=== PATIENT | female | born 1990 ===

== ENCOUNTER 2021-08-24 07:44 | Inpatient (IN) ==
[2021-08-24] MEDS ORDERED: OXYTOCIN 30 UNITS/500 ML BAG IV PRN (10:05)
[2021-08-24] MEDS ORDERED: DINOPROSTONE 10 MG INSERT PV ONE (10:20)
--- NOTE | 2021-08-24 10:31 | History & Physical Report ---
Date of Service August 24, 2021 Assessment & Plan Admission and Anticipated Discharge Date Admission Date: August 24, 2021 History of Present Illness Primary Care Provider: NO PCP 31 F P0000 at 41 weeks admitted for post dates induction. Allergies Allergy/AdvReac Type Severity Reaction Status Date / Time amoxicillin Allergy Unknown Verified 08/24/21 08:28 grape Allergy Swelling Verified 08/24/21 08:28 of Lip/Tongue/Throat Penicillins Allergy Unknown Verified 08/24/21 08:28 sulfamethoxazole Allergy Hives Verified 08/24/21 08:29 [From Bactrim] trimethoprim [From Bactrim] Allergy Hives Verified 08/24/21 08:29 Home Medications Medication Instructions Recorded Confirmed Type aspirin 81 mg tablet,delayed 81 mg PO DAILY 08/24/21 08/24/21 History release (Aspirin Low Dose) [id number] 1 mg 1 tab PO DAILY 08/24/21 08/24/21 History tablet Patient History Medical History Hyperlipemia no meds Seizure as a child; no meds; no seizure in last 12 years Surgical History H/O wisdom tooth extraction as a teenager Family History Father Hypertension Social History Smoking Status: Never smoker Hx Alcohol Use: No Hx Substance Use: No Preferred Language: Bulgarian Visual Impairment: No Limitations Beliefs That Will Affect Care: None marital status: marital status details: Robert Powers Current Living Situation: Spouse Current Living Situation Comment: lives with current occupational status: employed 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 Other Information That Helps Us Care for You: No Feels Safe at Home: Yes Safety Concerns: Feels Safe At This Time Assistive Devices: None OB History primip Class III obesity 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 Review of Systems All systems reviewed & are unremarkable except as noted in HPI & below Physical Exam Constitutional: WD/WN, vitals as above + obese and comfortable Eyes: PERRL, conjunctivae normal, anicteric sclerae Respiratory: normal respiratory effort, lungs clear to auscultation Cardiovascular: RRR, no murmur, no edema Neurologic: patellar DTR's 2+ bilat, sensation intact Psychiatric: A+Ox3, euthymic affect Genitourinary: normal external appearance OB Exam Abdomen: + vertex and + estimated weight (9 lbs.) Manual OB Exam: + cervical dilation (closed), + cervical effacement 50% and + station high OB Exam Monitor Tracing: + external FHT monitor used, + external uterine monitor used, + category I and + normal FHT variability Cervix posterior and firm in consistency will plan for Cervidil for cervical ripening discussed with patient and spouse Results & Data ([facility]) Vital Signs (Past 12 Hours) Vital Signs Temp Pulse Resp BP 08/24/21 08:45 111 H 126/73 08/24/21 08:30 105 H 135/74 08/24/21 08:16 117 H 136/78 08/24/21 08:00 36.7 C 122 H 18 151/81 H Code Status & VTE Plan VTE Prophylaxis Plan VTE Prophylaxis will be ordered: No
[2021-08-24 10:33] LABS: Hematocrit (blood only) 36.8 % (37-47); Hemoglobin 12.3 g/dL (12.0-16.0); Mean Corpuscular Hemoglobin 28.8 pg (25-34); Mean Corpuscular Hgb Conc 33.4 g/dL (32-36); Mean Corpuscular Volume 86.2 fL (80-100); Mean Platelet Volume 11.6 fL (7.4-10.4); Platelet Count 298 K/uL (130-400); RDW Coefficient of Variation 13.1 % (11.5-14.5); RDW Standard Deviation 40.9 fL (36.4-46.3); Red Blood Count 4.27 M/uL (4.2-5.4); White Blood Count 13.59 K/uL (4.8-10.8)
--- NOTE | 2021-08-24 10:39 | History & Physical Report ---
Date of Service August 24, 2021 Assessment & Plan (1) Post-dates : Plan: Cervidil for cervical ripening discussed with patient and spouse Admission and Anticipated Discharge Date Admission Date: August 24, 2021 History of Present Illness Primary Care Provider: NO PCP Allergies Allergy/AdvReac Type Severity Reaction Status Date / Time amoxicillin Allergy Unknown Verified 08/24/21 08:28 grape Allergy Swelling Verified 08/24/21 08:28 of Lip/Tongue/Throat Penicillins Allergy Unknown Verified 08/24/21 08:28 sulfamethoxazole Allergy Hives Verified 08/24/21 08:29 [From Bactrim] trimethoprim [From Bactrim] Allergy Hives Verified 08/24/21 08:29 Home Medications Medication Instructions Recorded Confirmed Type aspirin 81 mg tablet,delayed 81 mg PO DAILY 08/24/21 08/24/21 History release (Aspirin Low Dose) hnwdsdso-szz-Ko-FA 1 mg 1 tab PO DAILY 08/24/21 08/24/21 History tablet Patient History Medical History Hyperlipemia no meds Seizure as a child; no meds; no seizure in last 12 years Surgical History H/O wisdom tooth extraction as a teenager Family History Father Hypertension Social History Smoking Status: Never smoker Hx Alcohol Use: No Hx Substance Use: No Preferred Language: Pashto Visual Impairment: No Limitations Beliefs That Will Affect Care: None marital status: marital status details: Robert Powers Current Living Situation: Spouse Current Living Situation Comment: lives with current occupational status: employed 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 Other Information That Helps Us Care for You: No Feels Safe at Home: Yes Safety Concerns: Feels Safe At This Time Assistive Devices: None OB History primip Class 3 obesity 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 Review of Systems All systems reviewed & are unremarkable except as noted in HPI & below Physical Exam Constitutional: WD/WN, vitals as above + obese and comfortable Eyes: PERRL, conjunctivae normal, anicteric sclerae Cardiovascular: RRR, no murmur, no edema Psychiatric: A+Ox3, euthymic affect Genitourinary: no vaginal lesions, no adnexal mass OB Exam Abdomen: + vertex Manual OB Exam: + cervical dilation, + cervical effacement 50% and + station (closed and thick) high Results & Data ([place]) Vital Signs (Past 12 Hours) Vital Signs Temp Pulse Resp BP 08/24/21 08:45 111 H 126/73 08/24/21 08:30 105 H 135/74 08/24/21 08:16 117 H 136/78 08/24/21 08:00 36.7 C 122 H 18 151/81 H Code Status & VTE Plan VTE Prophylaxis Plan VTE Prophylaxis will be ordered: No
--- NOTE | 2021-08-24 10:48 | Labor Progress Brief Note ---
Date of Service August 24, 2021 Assessment & Plan Admission and Anticipated Discharge Date Admission Date: August 24, 2021 Physical Exam Genitourinary: Cervidil 10 mg placed GBS positive will start antibiotics when in active labor Results & Data ([facility]) Vital Signs (Past 12 Hours) Vital Signs Temp Pulse Resp BP 08/24/21 08:45 111 H 126/73 08/24/21 08:30 105 H 135/74 08/24/21 08:16 117 H 136/78 08/24/21 08:00 36.7 C 122 H 18 151/81 H
[2021-08-24] MEDS ORDERED: PENICILLIN G POTASSIUM 6 MU in DEXTROSE 5% 250 ML IV STA (10:59)
[2021-08-24] MEDS ORDERED: PENICILLIN G POTASSIUM 3 MU in DEXTROSE 5% 100 ML IV PRN (13:48)
[2021-08-24] MEDS: ACETAMINOPHEN 325 MG TAB PO PRN (15:40)
[2021-08-25] MEDS: ACETAMINOPHEN 325 MG TAB PO PRN (00:18)
[2021-08-25] MEDS: miSOPROStoL 50 MCG TAB PO PRN ×2 (00:50→05:37)
[2021-08-25] MEDS: LACTATED RINGER'S 1,000 ML IV PRN ×4 (01:30→21:22)
[2021-08-25] MEDS ORDERED: COUGH DROP (SUGAR FREE) LOZ 24 LOZ/1 BOX BUCCAL ONE (02:04)
[2021-08-25] MEDS: BUTORPHANOL TARTRATE 1 MG/ML VIAL IV PRN ×2 (05:57→13:05)
[2021-08-25] MEDS ORDERED: OXYTOCIN 30 UNITS/500 ML BAG IV PRN (11:40)
--- NOTE | 2021-08-25 11:40 | Labor Progress Brief Note ---
Date of Service August 25, 2021 Assessment & Plan (1) Post-dates : Plan: Met pt and spouse Pt doing well Induction for post dates and BMI received Cytotec X2 and Cervidil VE; ft/thick/post FHR; CAT1 EFW; 9lbs Smith bulb placed with 60cc saline Pt tolerated procedure well Low dose Pitocin started Admission and Anticipated Discharge Date Admission Date: August 24, 2021 Results & Data ([facility]) Vital Signs (Past 12 Hours) Vital Signs Temp Pulse Resp BP Pulse Ox 08/25/21 10:09 88 20 122/61 08/25/21 07:20 36.5 C 82 20 137/79 08/25/21 07:19 103 H 71 L 08/25/21 07:10 79 94 08/25/21 07:09 79 96 08/25/21 07:04 88 93 08/25/21 06:59 87 96 08/25/21 06:54 84 95 08/25/21 06:50 88 94 08/25/21 06:49 86 95 08/25/21 06:44 86 95 08/25/21 06:42 94 H 93 08/25/21 06:39 92 H 96 08/25/21 06:34 87 96 08/25/21 06:32 91 H 94 08/25/21 06:29 91 H 96 08/25/21 06:23 81 98 08/25/21 06:18 89 95 08/25/21 06:15 89 94 08/25/21 06:13 82 96 08/25/21 06:08 93 H 96 08/25/21 06:03 86 96 08/25/21 05:58 83 96 08/25/21 05:53 90 96 08/25/21 05:48 83 97 08/25/21 05:43 92 H 96 08/25/21 05:37 86 106/61 08/25/21 00:24 36.8 C 88 16 110/68
[2021-08-25] MEDS ORDERED: ceFAZolin 2000MG 2,000 MG/15 ML SYR IV STA (20:26)
--- NOTE | 2021-08-25 20:29 | Labor Progress Brief Note ---
Date of Service August 25, 2021 Assessment & Plan (1) Post-dates : Plan: pt doing well FHR; CAT1 VE 3-4/50/-2 Ctx; Minimal Pit' 10Mu AROM with amnio hook- clear fluid Admission and Anticipated Discharge Date Admission Date: August 24, 2021 Results & Data ([facility]) Vital Signs (Past 12 Hours) Vital Signs Temp Pulse Resp BP 08/25/21 20:21 96 H 139/86 08/25/21 19:15 88 130/71 08/25/21 19:05 36.8 C 08/25/21 18:18 96 H 20 130/86 08/25/21 17:14 74 118/73 08/25/21 16:20 36.7 C 82 22 113/74 08/25/21 15:16 74 138/68 08/25/21 14:15 77 16 120/67 08/25/21 13:12 67 124/58 L 08/25/21 11:55 36.8 C 88 20 124/68 08/25/21 10:09 88 20 122/61
[2021-08-25] MEDS ORDERED: fentaNYL citrate 100 MCG/2 ML VIAL ONE (21:57)
[2021-08-25] MEDS ORDERED: ePHEDrine sulfate 50 MG/ML AMP ONE (21:57)
[2021-08-25] MEDS ORDERED: BUPIVACAINE 0.25% 30 ML VIAL ONE (21:57)
[2021-08-25] MEDS ORDERED: SODIUM CHLORIDE 0.9% INJ 10 ML VIAL ONE (21:57)
[2021-08-25] MEDS ORDERED: fentaNYL 2MCG/ML ROPIVACAINE 1.25MG/ML 100 ML BAG EPI ONE (21:58)
[2021-08-25] MEDS ORDERED: diphenhydrAMINE 50 MG/ML VIAL IV PRN (22:19)
[2021-08-25] MEDS ORDERED: ePHEDrine sulfate 50 MG/ML AMP IV PRN (22:19)
[2021-08-25] MEDS ORDERED: NALBUPHINE HCL INJ 10 MG/ML AMP IV PRN (22:19)
[2021-08-25] MEDS ORDERED: NALOXONE HCL 0.4 MG/1 ML VIAL/CARP IV PRN (22:19)
[2021-08-25] MEDS ORDERED: ONDANSETRON INJ 2 MG/ML 2 ML VIAL IV PRN (22:19)
[2021-08-25] MEDS ORDERED: NALOXONE HCL 1 MG in SODIUM CHLORIDE 0.9% 1000ML 1,000 ML IV PRN (22:19)
[2021-08-25] MEDS ORDERED: fentaNYL 2MCG/ML ROPIVACAINE 1.25MG/ML 100 ML BAG EPI PRN (22:19)
--- NOTE | 2021-08-25 22:27 | Anesthesiology Consultation ---
Date of Service August 25, 2021 Assessment & Plan Chart Review Chart Review: Patient NOT seen in Pre Admission Testing and Acceptable Risk for Labor Epidural Consults Requested none ASA ASA3 Proposed Anesthesia Anesthesia Type: Labor Epidural and CSE Risk / Benefits Reviewed With: PT / POA / Parent / Guardian, Accepts Plan and Informed Consent Obtained History Height/Weight Height: 5 ft 7 in Weight: 132.903 kg Allergies Allergy/AdvReac Type Severity Reaction Status Date / Time amoxicillin Allergy Unknown Verified 08/24/21 08:28 grape Allergy Swelling Verified 08/24/21 08:28 of Lip/Tongue/Throat Penicillins Allergy Unknown Verified 08/24/21 08:28 sulfamethoxazole Allergy Hives Verified 08/24/21 08:29 [From Bactrim] trimethoprim [From Bactrim] Allergy Hives Verified 08/24/21 08:29 Medications Home Medications Medication Instructions Recorded Confirmed Last Taken aspirin 81 mg tablet,delayed 81 mg PO DAILY 08/24/21 08/24/21 08/23/21 08:00 release (Aspirin Low Dose) ixzjcwbx-fqt-Be-FA 1 mg 1 tab PO DAILY 08/24/21 08/24/21 08/23/21 08:00 tablet Active Medications Generic Name Dose Route Start Last Admin Trade Name Freq PRN Reason Stop Dose Admin Acetaminophen 650 mg 08/24/21 15:23 08/25/21 00:18 Acetaminophen 325 Mg Tab PO 09/23/21 15:22 650 mg Q4H PRN Administration Pain Butorphanol Tartrate 1 mg 08/25/21 00:56 08/25/21 13:05 Butorphanol Tartrate 1 Mg/Ml Vial IV 09/24/21 00:55 1 mg Q2R PRN Administration Pain Lactated Ringer's 1,000 mls @ 125 mls/hr 08/24/21 10:05 08/25/21 21:22 Lr IV 08/26/21 10:04 125 mls/hr .Q8H PRN Administration L&D Protocol Protocol Oxytocin 30 units in 500 mls @ 12 mls/hr 08/25/21 11:40 08/25/21 21:51 Pitocin IV 08/27/21 11:39 0.72 units/hr .Q24H PRN 12 mls/hr Labor Induction/Augmentation Titration Protocol 0.72 UNITS/HR Misoprostol 50 mcg 08/24/21 23:47 10/05/21 05:37 Misoprostol 50 Mcg Tab PO 09/23/21 23:46 50 mcg Q4H PRN Administration Labor induction. NPO Date Last Intake of Fluids: 08/25/21 Time Last Intake of Fluids: 20:00 Date Last Intake of Solids: 08/25/21 Time Last Intake of Solids: 08:30 Past Medical History Medical History (Updated 08/25/21 @ 22:21 by Loco Shaw MD) Hyperlipemia no meds Obesity Seizure as a child; no meds; no seizure in last 12 years Exercise / Class Metabolic Activity II 4-5 Yardwork/Stairs/Walk up hill Past Family History Family History Father Hypertension Past Surgical History Surgical History H/O wisdom tooth extraction as a teenager Past Anesthesia History No Hx of Anesthesia Complications and No Family Hx of Anesthesia Complications History of PONV No Hx of PONV and No Hx of Motion Sickness Social History Smoking Status: Never smoker Hx Alcohol Use: No Hx Substance Use: No substance use type: does not use Review of Systems no chest pain or sob Physical Exam Vital Signs Last Vital Signs Temp 36.5 C 08/25/21 21:22 Pulse 83 08/25/21 22:15 Resp 20 08/25/21 18:18 BP 118/72 08/25/21 22:15 Pulse Ox 71 L 08/25/21 07:19 SpO2 100 Constitutional + morbidly obese ENMT Mouth: no TMJ abnormality Thyromental Distance: > or= 3.5 Finger Breadths Mallampati Class: II Neck normal visual inspection Respiratory normal respiratory effort Auscultation: lungs clear to auscultation bilaterally Cardiovascular Rate/Rhythm: regular rate and regular rhythm Musculoskeletal Spine: normal cervical ROM Neurologic moves all extremities Psychiatric Orientation: alert and oriented x 3 Testing Laboratory Results 08/24/21 10:17 Blood Type B Positive 08/24/21 10:17 Antibody Screen NEGATIVE 08/24/21 10:17
--- NOTE | 2021-08-26 02:02 | Labor Progress Brief Note ---
Date of Service August 26, 2021 Assessment & Plan (1) Post-dates : Plan: Recurrent late VE; 4cm Unchanged A/p FTP Recurrent late decel discussed c/sec with pt Pt has agreed discussed risk of surgery consent is signed will proceed to c/sec (2) Obesity: Admission and Anticipated Discharge Date Admission Date: August 24, 2021 Results & Data ([facility]) Vital Signs (Past 12 Hours) Vital Signs Temp Pulse Resp BP Pulse Ox 08/26/21 01:56 97 H 100 08/26/21 01:51 84 100 08/26/21 01:46 105 H 99 08/26/21 01:41 93 H 98 08/26/21 01:36 79 99 08/26/21 01:35 86 122/67 08/26/21 01:31 108 H 100 08/26/21 01:26 130 H 96 08/26/21 01:21 83 96 08/26/21 01:20 89 119/62 08/26/21 01:16 72 96 08/26/21 01:11 88 96 08/26/21 01:06 84 97 08/26/21 01:05 99 H 124/70 08/26/21 01:01 68 96 08/26/21 01:00 36.7 C 18 08/26/21 00:56 70 96 08/26/21 00:51 84 96 08/26/21 00:50 81 123/57 L 08/26/21 00:46 96 H 98 08/26/21 00:41 80 97 08/26/21 00:37 82 130/60 08/26/21 00:36 86 97 08/26/21 00:31 113 H 98 08/26/21 00:26 70 96 08/26/21 00:21 81 97 08/26/21 00:20 82 125/60 08/26/21 00:16 76 97 08/26/21 00:11 77 96 08/26/21 00:06 75 97 08/26/21 00:05 111 H 130/71 08/26/21 00:01 70 94 08/25/21 23:56 73 96 08/25/21 23:51 69 95 08/25/21 23:50 66 113/56 L 08/25/21 23:46 66 95 08/25/21 23:41 73 98 08/25/21 23:37 68 113/61 08/25/21 23:36 70 97 08/25/21 23:31 90 97 08/25/21 23:26 68 96 08/25/21 23:22 76 123/60 08/25/21 23:21 77 98 08/25/21 23:16 81 98 08/25/21 23:11 77 96 08/25/21 23:06 81 98 08/25/21 23:04 78 125/58 L 08/25/21 23:01 91 H 116/57 L 98 08/25/21 23:00 36.5 C 18 08/25/21 22:58 93 H 124/60 08/25/21 22:56 83 98 08/25/21 22:52 88 113/80 08/25/21 22:51 92 H 99 08/25/21 22:46 93 H 100 08/25/21 22:43 98 H 140/87 08/25/21 22:41 94 H 100 08/25/21 22:40 100 H 139/83 08/25/21 22:36 98 H 100 08/25/21 22:31 98 H 127/72 100 08/25/21 22:26 95 H 100 08/25/21 22:15 83 118/72 08/25/21 21:27 86 136/83 08/25/21 21:22 36.5 C 08/25/21 20:21 96 H 139/86 08/25/21 19:15 88 130/71 08/25/21 19:05 36.8 C 08/25/21 18:18 96 H 20 130/86 08/25/21 17:14 74 118/73 08/25/21 16:20 36.7 C 82 22 113/74 08/25/21 15:16 74 138/68 08/25/21 14:15 77 16 120/67
[2021-08-26] MEDS ORDERED: CITRIC ACID/SODIUM CITRATE 15 ML UDC PO ONE (02:30)
[2021-08-26] MEDS ORDERED: LACTATED RINGER'S 500 ML IV PRN (02:32)
[2021-08-26] MEDS ORDERED: NALOXONE HCL 0.08 MG in SYRINGE 1.8 ML IV PRN (02:32)
[2021-08-26] MEDS ORDERED: NALBUPHINE HCL INJ 10 MG/ML AMP IV PRN (02:32)
[2021-08-26] MEDS ORDERED: HYDROmorphone INJ 0.5 MG/0.5 ML SYR IV PRN (02:32)
[2021-08-26] MEDS ORDERED: NALOXONE HCL 1 MG in SODIUM CHLORIDE 0.9% 1000ML 1,000 ML IV PRN (02:32)
[2021-08-26] MEDS ORDERED: ePHEDrine sulfate 50 MG/ML AMP IV PRN (02:32)
[2021-08-26] MEDS ORDERED: diphenhydrAMINE 50 MG/ML VIAL IV PRN ×2 (02:32→20:32)
[2021-08-26] MEDS ORDERED: KETOROLAC 30 MG/ML VIAL IV PRN (02:32)
[2021-08-26] MEDS ORDERED: MoRPHine SULFATE PF 1 MG/ML 10 ML AMP/VIAL EPI ONE (02:32)
[2021-08-26] MEDS ORDERED: NALOXONE HCL 0.4 MG/1 ML VIAL/CARP IV PRN (02:32)
[2021-08-26] MEDS ORDERED: NO NARCOTICS OR SEDATIVES SCH (02:45)
[2021-08-26] MEDS ORDERED: DC INTRASPINAL MORPHINE SCH (02:45)
[2021-08-26] MEDS ORDERED: SODIUM CHLORIDE 0.9% 1000ML 1,000 ML IV SCH (02:45)
[2021-08-26] MEDS ORDERED: ceFAZolin 1000MG 1,000 MG/7.5 ML SYR IV PRN (03:26)
[2021-08-26] MEDS ORDERED: MAGNESIUM HYDROXIDE SUSP 30 ML UDC PO PRN (04:09)
[2021-08-26] MEDS ORDERED: SENNA 8.6 MG TAB PO PRN (04:09)
[2021-08-26] MEDS ORDERED: SUPERCREAM 0.870% 15 GM JAR EXT PRN (04:09)
[2021-08-26] MEDS ORDERED: BENZOCAINE 20% AER SPR 82.5 GM CAN EXT PRN (04:09)
[2021-08-26] MEDS ORDERED: HYDROCORTISONE ACETATE 25 MG SUPP PR PRN (04:09)
[2021-08-26] MEDS ORDERED: DIPHTHERIA/TETANUS/PERTUSSIS 0.5 ML SYR/VIAL IM ONE (04:09)
--- NOTE | 2021-08-26 04:11 | Anesthesiology Progress Note ---
Date of Service August 26, 2021 Anesthesia Post Procedure Vital Signs Vital Signs: Temp Pulse Resp BP Pulse Ox 08/26/21 04:07 79 96/47 L 08/26/21 04:06 78 100 08/26/21 02:36 117 H 100 08/26/21 02:31 128 H 100 08/26/21 02:26 108 H 100 08/26/21 02:21 112 H 100 08/26/21 02:20 106 H 120/62 08/26/21 02:16 107 H 100 08/26/21 02:11 98 H 100 08/26/21 02:06 112 H 100 08/26/21 02:01 112 H 100 08/26/21 01:56 97 H 100 08/26/21 01:51 84 100 08/26/21 01:46 105 H 99 08/26/21 01:41 93 H 98 08/26/21 01:36 79 99 08/26/21 01:35 86 122/67 08/26/21 01:31 108 H 100 08/26/21 01:30 18 08/26/21 01:26 130 H 96 08/26/21 01:21 83 96 08/26/21 01:20 89 119/62 08/26/21 01:16 72 96 08/26/21 01:11 88 96 08/26/21 01:06 84 97 08/26/21 01:05 99 H 124/70 08/26/21 01:01 68 96 08/26/21 01:00 36.7 C 18 08/26/21 00:56 70 96 08/26/21 00:51 84 96 08/26/21 00:50 81 123/57 L 08/26/21 00:46 96 H 98 08/26/21 00:41 80 97 08/26/21 00:37 82 130/60 08/26/21 00:36 86 97 08/26/21 00:31 113 H 98 08/26/21 00:30 18 08/26/21 00:26 70 96 08/26/21 00:21 81 97 08/26/21 00:20 82 125/60 08/26/21 00:16 76 97 08/26/21 00:11 77 96 08/26/21 00:06 75 97 08/26/21 00:05 111 H 130/71 08/26/21 00:01 70 94 08/26/21 00:00 18 08/25/21 23:56 73 96 08/25/21 23:51 69 95 08/25/21 23:50 66 113/56 L 08/25/21 23:46 66 95 08/25/21 23:41 73 98 08/25/21 23:37 68 113/61 08/25/21 23:36 70 97 08/25/21 23:31 90 97 08/25/21 23:30 18 08/25/21 23:26 68 96 08/25/21 23:22 76 123/60 08/25/21 23:21 77 98 08/25/21 23:16 81 98 08/25/21 23:11 77 96 08/25/21 23:06 81 98 08/25/21 23:04 78 125/58 L 08/25/21 23:01 91 H 116/57 L 98 08/25/21 23:00 36.5 C 18 08/25/21 22:58 93 H 124/60 08/25/21 22:56 83 98 08/25/21 22:52 88 113/80 08/25/21 22:51 92 H 99 08/25/21 22:46 93 H 100 08/25/21 22:43 98 H 140/87 08/25/21 22:41 94 H 100 08/25/21 22:40 100 H 139/83 08/25/21 22:36 98 H 100 08/25/21 22:31 98 H 127/72 100 08/25/21 22:26 95 H 100 08/25/21 22:15 83 118/72 08/25/21 21:27 86 136/83 08/25/21 21:22 36.5 C 08/25/21 20:21 96 H 139/86 08/25/21 19:15 88 130/71 08/25/21 19:05 36.8 C 08/25/21 18:18 96 H 20 130/86 08/25/21 17:14 74 118/73 08/25/21 16:20 36.7 C 82 22 113/74 08/25/21 15:16 74 138/68 08/25/21 14:15 77 16 120/67 08/25/21 13:12 67 124/58 L 08/25/21 11:55 36.8 C 88 20 124/68 08/25/21 10:09 88 20 122/61 08/25/21 07:20 36.5 C 82 20 137/79 08/25/21 07:19 103 H 71 L 08/25/21 07:10 79 94 08/25/21 07:09 79 96 08/25/21 07:04 88 93 08/25/21 06:59 87 96 08/25/21 06:54 84 95 08/25/21 06:50 88 94 08/25/21 06:49 86 95 08/25/21 06:44 86 95 08/25/21 06:42 94 H 93 08/25/21 06:39 92 H 96 08/25/21 06:34 87 96 08/25/21 06:32 91 H 94 08/25/21 06:29 91 H 96 08/25/21 06:23 81 98 08/25/21 06:18 89 95 08/25/21 06:15 89 94 08/25/21 06:13 82 96 08/25/21 06:08 93 H 96 08/25/21 06:03 86 96 08/25/21 05:58 83 96 08/25/21 05:53 90 96 08/25/21 05:48 83 97 08/25/21 05:43 92 H 96 08/25/21 05:37 86 106/61 Transfer of Care Handoff Completed per policy Notes Mental Status: alert / awake / arousable Patient Amnestic to Procedure: Yes Nausea / Vomiting: adequately controlled Pain: adequately controlled Airway Patency, RR, SpO2: stable & adequate BP & HR: stable & adequate Hydration State: stable & adequate Neuraxial Anesthesia: was administered and sensory block is resolving Anesthetic Complications: no major complications apparent and Pt Satisfied with anesthetic care
[2021-08-26] MEDS: OXYTOCIN 20 UNITS in LACTATED RINGER'S 1,000 ML IV SCH ×2 (05:44→13:51)
[2021-08-26 05:50] LABS: Base Excess Cord Arterial Bld -7.5 mEq/L (-9-1.8); CO2 Cord Arterial Blood 65 mmHg (39.1-73.5); HCO3 Cord Arterial Blood 23 mmol/L (19.7-28.5); pH Cord Arterial Blood 7.16 (7.1-7.38)
[2021-08-26 05:51] LABS: Oxygen Sat Cord Arterial Blood < 60.0 % (<60)
[2021-08-26 05:52] LABS: Base Excess Cord Venous Blood -5.3 mEq/L (-7.7-1.9); Cord Venous Blood HCO3 24 mmol/L (18.4-26.8); Cord Venous Blood PCO2 64 mmHg (30.4-57.2); Cord Venous Blood PO2 14 mmHg (14.1-43.3); O2 Saturation Cord Venous Bld < 60.0 % (<68)
--- NOTE | 2021-08-26 08:02 | Operative Report (OR) ---
INDICATION FOR SURGERY: This is a 31-year-old G1, P0 who presented to labor and delivery on 08/24/2021 for induction of labor for prolonged gestation and elevated BMI. The patient received Cervidil and Cytotec. Amniotomy was performed. The patient eventually got to 4 cm with Pitocin augmentation and was experiencing recurrent late decelerations with failure to progress. Decision was therefore made to perform section. PREOPERATIVE DIAGNOSES: 1. Failed induction of labor. 2. Failure to progress. 3. Category III strip. POSTOPERATIVE DIAGNOSES: 1. Failed induction of labor. 2. Failure to progress. 3. Category III strip. SURGEON: Harpal Cedeño MD RUG SCRATCHER: Dr. Davidson. ESTIMATED BLOOD LOSS: 600 mL. INTRAVENOUS FLUIDS: 2 liters. URINE OUTPUT: 180 mL of clear urine at the end of procedure. FINDINGS: in cephalic presentation with the umbilical cord wrapped twice around the body. Uterus, tubes, ovaries, and rest of abdominal exam is unremarkable. PATHOLOGY: Placenta and cord gas. COMPLICATIONS: None. DRAINS: Smith catheter. ANESTHESIA: Epidural. Attestation for assistance; Assistance was necessary to help with retraction of instruments and equipment to facilitate safe surgery DESCRIPTION OF PROCEDURE: The patient was taken to the operating room where she was prepped and draped in normal sterile fashion in dorsal lithotomy position. A Pfannenstiel incision was made and carried down to the fascia with the scalpel. Fascia was incised in the midline and extended laterally on both sides. The fascia was sharply dissected off the rectus abdominis muscle. Peritoneum was identified and entered sharply. Once inside the abdomen, an Juan retractor was placed for retraction. Vesicouterine peritoneum was sharply dissected off the lower segment of the uterus. A transverse incision was made in the uterus and extended laterally on both sides. 's head was delivered. was known to have body cord x2. Cord was clamped and cut and infant handed over to the pediatric team. Details of the 's weight and Apgars are in the pediatric record. Placenta was manually removed. Uterus was exteriorized and cleared of all clots and debris. Uterus was closed in two layers with Vicryl. There was good hemostasis post repair. Copious amount of irrigation was used to irrigate the abdomen. Uterus was returned to the abdominal cavity. Peritoneum was reapproximated with plain suture. Fascia was closed in a running fashion with Vicryl. There was good hemostasis. Subcutaneous space was irrigated and a plain suture was used to approximate the subcutaneous space. Skin was closed with denver. All instruments were removed from the abdomen and accounted for x2 including sponges, needles, and retractors. The patient was stable to recovery. Job ID: [id number] [facility]
[2021-08-26] MEDS: DOCUSATE SODIUM 100 MG CAP PO SCH ×2 (09:37→22:54)
[2021-08-26] MEDS: SIMETHICONE 80 MG CHEW PO SCH ×4 (09:38→22:54)
[2021-08-26] MEDS: PRENATAL VITAMIN 1 TAB PO SCH (12:42)
[2021-08-26] MEDS: FERROUS SULFATE 325 MG TAB PO SCH (12:42)
[2021-08-26] MEDS ORDERED: PROMETHAZINE HCL 25 MG in SODIUM CHLORIDE 0.9% 50 ML IV PRN (20:32)
[2021-08-26] MEDS ORDERED: diphenhydrAMINE Capsule 25 MG CAP PO PRN (20:32)
[2021-08-26] MEDS ORDERED: ONDANSETRON INJ 2 MG/ML 2 ML VIAL IV PRN (20:32)
[2021-08-26] MEDS: oxyCODONE/ACETAMINOPHEN 5mg/325mg TAB PO PRN (22:54)
[2021-08-27] MEDS: oxyCODONE/ACETAMINOPHEN 5mg/325mg TAB PO PRN ×5 (03:24→23:48)
[2021-08-27] MEDS: IBUPROFEN 600 MG TAB PO PRN ×5 (03:24→23:48)
[2021-08-27 06:23] LABS: Basophils # (auto) 0.01 K/uL (0-0.2); Basophils % (auto) 0.1 %; Eosinophils # (auto) 0.07 K/uL (0-0.5); Eosinophils % (auto) 0.4 %; Hematocrit (blood only) 30.6 % (37-47); Immature Granulocytes # (auto) 0.03 K/uL (0.00-0.02); Immature Granulocytes % (auto) 0.2 %; Lymphocytes # (auto) 1.79 K/uL (1.2-3.4); Lymphocytes % (auto) 11.4 %; Mean Corpuscular Hemoglobin 28.2 pg (25-34); Mean Corpuscular Hgb Conc 32.7 g/dL (32-36); Mean Corpuscular Volume 86.2 fL (80-100); Mean Platelet Volume 11.5 fL (7.4-10.4); Monocytes # (auto) 1.05 K/uL (0.11-0.59); Monocytes % (auto) 6.7 %; Neutrophils # (auto) 12.72 K/uL (1.4-6.5); Neutrophils % (auto) 81.2 %; Platelet Count 233 K/uL (130-400); RDW Coefficient of Variation 13.4 % (11.5-14.5); RDW Standard Deviation 42.2 fL (36.4-46.3); Red Blood Count 3.55 M/uL (4.2-5.4); White Blood Count 15.67 K/uL (4.8-10.8)
[2021-08-27] MEDS: PRENATAL VITAMIN 1 TAB PO SCH (08:27)
[2021-08-27] MEDS: DOCUSATE SODIUM 100 MG CAP PO SCH ×2 (08:27→21:05)
[2021-08-27] MEDS: FERROUS SULFATE 325 MG TAB PO SCH (08:28)
[2021-08-27] MEDS: SIMETHICONE 80 MG CHEW PO SCH ×4 (08:30→21:05)
--- NOTE | 2021-08-27 11:49 | Obstetrical Progress Note ---
Date of Service August 27, 2021 Subjective Ambulation: ambulating normally Voiding: no voiding problems Passing Gas:: Yes Diet Tolerance:: regular diet Feeding Type:: breast feeding Current Pain Level(1-10): 0 doing well Physical Exam Constitutional WD/WN, vitals as above comfortable abdomen soft and non-tender incision c/d/i no edema neg Silvia's tent d/c in AM Results & Data ([facility]) Vital Signs (Past 12 Hours) Vital Signs Temp Pulse Resp BP Pulse Ox 08/27/21 07:38 36.8 C 76 18 101/68 97 08/27/21 03:15 36.6 C 58 L 16 93/63 L 97 Laboratory Results Laboratory Results - last 72 hr 08/24/21 08/26/21 08/26/21 10:17 03:16 03:16 WBC RBC Hgb Hct MCV MCH MCHC RDW Std Deviation RDW Coeff of Alice Plt Count MPV Immature Gran % (Auto) Neut % (Auto) Lymph % (Auto) [place] % (Auto) Eos % (Auto) Baso % (Auto) Neut # (Auto) Lymph # (Auto) [place] # (Auto) Eos # (Auto) Baso # (Auto) Immature Gran # (Auto) Cord ABG pH 7.16 Cord ABG pCO2 65 Cord ABG pO2 TNP Cord ABG HCO3 23 Cord ABG Base Excess -7.5 Cord ABG O2 Sat < 60.0 Cord VBG pH 7.20 Cord VBG pCO2 64 H Cord VBG pO2 14 L Cord VBG HCO3 24 Cord VBG Base Excess -5.3 Cord VBG O2 Sat < 60.0 Blood Gas Comments LINDSAY LINDSAY Blood Type B Positive Antibody Screen NEGATIVE 08/27/21 06:03 WBC 15.67 H RBC 3.55 L Hgb 10.0 L Hct 30.6 L MCV 86.2 MCH 28.2 MCHC 32.7 RDW Std Deviation 42.2 RDW Coeff of Alice 13.4 Plt Count 233 MPV 11.5 H Immature Gran % (Auto) 0.2 Neut % (Auto) 81.2 Lymph % (Auto) 11.4 [place] % (Auto) 6.7 Eos % (Auto) 0.4 Baso % (Auto) 0.1 Neut # (Auto) 12.72 H Lymph # (Auto) 1.79 [place] # (Auto) 1.05 H Eos # (Auto) 0.07 Baso # (Auto) 0.01 Immature Gran # (Auto) 0.03 H Cord ABG pH Cord ABG pCO2 Cord ABG pO2 Cord ABG HCO3 Cord ABG Base Excess Cord ABG O2 Sat Cord VBG pH Cord VBG pCO2 Cord VBG pO2 Cord VBG HCO3 Cord VBG Base Excess Cord VBG O2 Sat Blood Gas Comments Blood Type Antibody Screen
[2021-08-27] MEDS ORDERED: bisacodyL 5 MG TABEC PO SCH (20:00)
[2021-08-28] MEDS ORDERED: bisacodyL 10 MG SUPP PR PRN (04:09)
[2021-08-28 06:43] LABS: Hematocrit (blood only) 31.4 % (37-47); Hemoglobin 10.3 g/dL (12.0-16.0)
[2021-08-28] MEDS ORDERED: MEASLES, MUMPS & RUBELLA VIRUS VIAL SQ ONE (07:43)
--- NOTE | 2021-08-28 08:05 | Obstetrical Progress Note ---
Date of Service August 28, 2021 Assessment & Plan (1) Post-dates : Continue routine skilled nursing today with pain meds F/u in office for staple removal in 3-4 days (2) Obesity: Subjective Patient doing well in bed, bonding with baby and attempting to breast-feed. Denies any heavy vaginal bleeding. Ambulating well, pain has been well controlled on pain medications. She has been urinating, passing flatus but no bowel movement yet. Otherwise feeling well. Questing to go home today Review of Systems All systems reviewed & are unremarkable except as noted in HPI & below Constitutional: + as per Subjective / HPI Physical Exam Constitutional WD/WN, vitals as above Eyes PERRL, conjunctivae normal, anicteric sclerae Respiratory normal respiratory effort, lungs clear to auscultation Cardiovascular RRR, no murmur, no edema Gastrointestinal (Abdomen) normal bowel sounds, soft, nontender, no hepatosplenomegaly JANETTE dressing clean dry Skin no rashes, warm and dry Results & Data ([facility]) Vital Signs (Past 12 Hours) Vital Signs Temp Pulse Pulse Resp BP BP 08/28/21 00:15 36.7 C 83 18 111/76 08/27/21 20:10 37 C 79 18 115/81
[2021-08-28] MEDS: SIMETHICONE 80 MG CHEW PO SCH (09:12)
[2021-08-28] MEDS: FERROUS SULFATE 325 MG TAB PO SCH (09:13)
[2021-08-28] MEDS: PRENATAL VITAMIN 1 TAB PO SCH (09:13)
[2021-08-28] MEDS: DOCUSATE SODIUM 100 MG CAP PO SCH (09:13)
--- NOTE | 2021-09-05 04:41 | Discharge Summary (DS) ---
DATE OF ADMISSION: 08/24/2021. DATE OF DISCHARGE: 08/28/2021. HISTORY OF PRESENT ILLNESS: This is a 31-year-old G1, P0 who presented to labor and delivery on 02/2021 for induction of labor for prolonged gestation and elevated BMI. She was 41 weeks and 2 days on that day. The patient received Cervidil and Cytotec. Amniotomy was performed. She eventually go t to 4 cm with Pitocin augmentation and was experiencing recurrent late decels with failure to progre ss. This was a category 3 strip, decision was therefore made to perform section. The patie nt went on and had a section and delivered a live . Surgical procedure and pediatric information are on their respective records. The patient did well postoperatively met all milestones in recovery. On postop day 1 and 2 continued to do well. She was able to advance her diet, and med ication as well as ambulation. The patient was discharged home safely on 08/28/2021. PAST MEDICAL HISTORY: 1. Hyperlipidemia. 2. Obesity. 3. Seizures. SURGICAL HISTORY: The patient had had dental procedures done in the past. SOCIAL HISTORY: The patient is and lives with spouse. Denies tobacco, drug or alcohol use. ALLERGIES: ALLERGIC TO BACTRIM AND QUESTIONABLE ALLERGY TO PENICILLIN. PHYSICAL EXAMINATION: VITAL SIGNS: On 08/28/2021 are as follows: Blood pressure 118/78, pulse 83, respirations 18, temper ature 36.8. HEART: S1 and S2, regular rhythm and rate. LUNGS: Clear to auscultation bilaterally. ABDOMEN: Nontender, nondistended. Incision was clean, dry and intact. EXTREMITIES: No cyanosis, clubbing, or significant edema. CONDITION ON DISCHARGE: Stable. OPERATIONS: section. DISCHARGE DIAGNOSIS: Postoperative section. PLAN ON DISCHARGE: The patient is discharged home with instructions regarding activity, diet, follow up appointment and medications. Job ID: [id number]
== END 2021-08-28 11:25 | disposition home or self-care (01) | DRG 788 ==
LOC: OPB 07:44 → 4S1 07:46 → 4S2 08-26 07:42
DX: Z3A.41 41 weeks gestation of pregnancy; O61.0 Failed medical induction of labor; Z79.82 Long term (current) use of aspirin; Z88.0 Allergy status to penicillin; O69.81X0 Labor and delivery complicated by cord around neck, without compression, not applicable or unspecified; O48.0 Post-term pregnancy; Z88.1 Allergy status to other antibiotic agents; O32.4XX0 Maternal care for high head at term, not applicable or unspecified; O99.824 Streptococcus B carrier state complicating childbirth; Z37.0 Single live birth